=== PATIENT | male | born 1985 | race Caucasian/White ===

== ENCOUNTER 2016-09-15 00:03 | Emergency (ER) | payer MEDICAID ==
[2016-09-15 00:10] VITALS: TEMP 97.5
--- NOTE | 2016-09-15 00:49 | EDPHY ---
H & P Stated Complaint: c/o pain/lac on back of head after something fell and hit pt on back of hea Time Seen by Provider: 09/15/16 00:43 HPI/ROS: CHIEF COMPLAINT: Scalp laceration HISTORY OF PRESENT ILLNESS: Patient is a 31-year-old man who comes to the emergency department complaining of a scalp laceration. He states that he was putting together a table when a piece of the metal fell and hit him in the back of the head. He has a 1 cm laceration to his occiput. He denies loss of consciousness. He denies headache. He denies neck pain. He denies any other injuries or symptoms. REVIEW OF SYSTEMS: Constitutional: denies: chills, fever, recent illness, recent injury EENTM: denies: blurred vision, double vision, nose congestion Respiratory: denies: cough, shortness of breath Cardiac: denies: chest pain, irregular heart rate, lightheadedness, palpitations Gastrointestinal/Abdominal: denies: abdominal pain, diarrhea, nausea, vomiting, blood streaked stools Genitourinary: denies: dysuria, frequency, hematuria, pain Musculoskeletal: denies: joint pain, muscle pain Skin: See HPI Neurological: denies: headache, numbness, paresthesia, tingling, dizziness, weakness Hematologic/Lymphatic: denies: blood clots, easy bleeding, easy bruising Immunologic/allergic: denies: HIV/AIDS, transplant EXAM: GENERAL: Well-appearing, well-nourished and in no acute distress. HEAD: Small 1 cm laceration to occiput, no crepitus or deformity. , normocephalic. EYES: Pupils equal round and reactive to light, extraocular movements intact, sclera anicteric, conjunctiva are normal. ENT: TMs normal, nares patent, oropharynx clear without exudates. Moist mucous membranes. NECK: Normal range of motion, supple without lymphadenopathy or JVD. LUNGS: Breath sounds clear to auscultation bilaterally and equal. No wheezes rales or rhonchi. HEART: Regular rate and rhythm without murmurs, rubs or gallops. ABDOMEN: Soft, nontender, normoactive bowel sounds. No guarding, no rebound. No masses appreciated. BACK: No CVA tenderness, no spinal tenderness, step-offs or deformities EXTREMITIES: Normal range of motion, no pitting or edema. No clubbing or cyanosis. NEUROLOGICAL: Cranial nerves II through XII grossly intact. Normal speech, normal gait. 5/5 strength, normal movement in all extremities, normal sensation PSYCH: Normal mood, normal affect. SKIN: Warm, dry, normal turgor, no visible rashes or lesions. Source: Patient Exam Limitations: No limitations - Personal History Current Tetanus Diphtheria and Acellular Pertussis (TDAP): Yes - Medical/Surgical History Hx Asthma: No Hx Chronic Respiratory Disease: No Hx Diabetes: No Hx Cardiac Disease: No Hx Renal Disease: No Hx Cirrhosis: No Hx Alcoholism: No Hx HIV/AIDS: No Hx Splenectomy or Spleen Trauma: No Other PMH: orif L wrist - Family History Significant Family History: No pertinent family hx - Social History Smoking Status: Never smoked Alcohol Use: Sober Drug Use: None Constitutional: Initial Vital Signs Temperature (C) 36.4 C 09/15/16 00:07 Heart Rate 51 L 09/15/16 00:07 Respiratory Rate 16 09/15/16 00:07 Blood Pressure 133/90 H 09/15/16 00:07 O2 Sat (%) 99 09/15/16 00:07 O2 Delivery Mode Room Air Allergies/Adverse Reactions: No Known Allergies Allergy (Unverified 09/15/16 00:10) Home Medications: Medication Instructions Recorded NK [No Known Home Meds] 09/15/16 Medical Decision Making Procedures: Procedure: Laceration repair. Verbal consent was obtained from the patient. The 1 cm scalp laceration was not anesthetized. The wound was irrigated copiously according to protocol, draped and explored to its base. It was approximately 1/2 cm deep. There were no deep structures involved. No tendon, nerve, or vascular injury was identified when explored. No foreign body was identified. The wound was repaired with 1 single staple. The wound repair was simple without wound margin revisement or multiple flap alignment. The procedure was performed by myself. A dressing was then placed with sterile gauze and bacitracin. ED Course/Re-evaluation: Patient has a very small laceration. I will repaired with a staple. He declines anesthesia. He declines imaging. I agree that he is low risk for internal injury. We also discussed concussions. He has a very slight headache but no other symptoms. He tolerated repair well. We discussed staple care. We discussed concussions and stepwise recovery. It is unclear as to whether not he has a concussion. Differential Diagnosis: Partial list of the Differential diagnosis considered include but were not limited to; scalp laceration, concussion and although unlikely based on the history and physical exam, I also considered fracture, cervical spine injury, hemorrhage. I discussed these differential diagnoses and the plan with the patient as well as the usual and expected course. The patient understands that the diagnosis is provisional and that in medicine we are not always correct and that further workup is often warranted. Usual and customary warnings were given. All of the patient's questions were answered. The patient was instructed to return to the emergency department should the symptoms at all worsen or return, otherwise to followup with the physician as we discussed. Departure - Departure Disposition: Home, Routine, Self-Care Clinical Impression: Laceration Condition: Fair Instructions: Staple Care (ED) Additional Instructions: Return to have your loni removed in 7-10 days. Referrals: Maria Moreno NP [Primary Care Provider] - As per Instructions
[2016-09-15 01:30] VITALS: BP 115/71; PULSE 50; RESP 18; O2SAT 97
== END 2016-09-22 12:17 | disposition home or self-care (01) ==
PROC: 0HQ0XZZ Repair Scalp Skin, External Approach (ICD-10-PCS; principal; 2016-09-15)
DX: S01.01XA Laceration without foreign body of scalp, initial encounter (principal); W20.8XXA Other cause of strike by thrown, projected or falling object, initial encounter

== ENCOUNTER 2016-09-17 17:13 | Emergency (ER) | payer MEDICAID ==
--- NOTE | 2016-09-17 18:30 | EDPHY ---
H & P Stated Complaint: hit on head /lac wednesday now has baig and head feels hot Time Seen by Provider: 09/17/16 17:53 HPI/ROS: Chief Complaint: Head injury, head throbbing, felt hot HPI: 31-year-old male who sustained a head injury 3 days ago when a metal object fell and hit his head and sustained a laceration. He was seen here and had a single staple placed. He did not have a loss of consciousness. He fell completely normal unwell the following 2 days and in fact went for a run yesterday. Today he felt normal with this afternoon started developing a mild throbbing in his head and felt hit his head and shoulders were hot and flushed. No vision changes. No nausea or vomiting. Pain at worst was a 3 on 10. Since being in the waiting room and in the emergency department is down to 110. He called his primary care physician was told to come in to have a CT scan of his brain. Patient is concerned about the radiation might be associated with this. Denies any other injuries. No hearing changes. No vision changes. He has not been taking any medications. ROS: 10 point Review of Systems is negative except as noted in the HPI. PMH: None Social History: No smoking, rare alcohol, no recreational drug use Family History: non-contributory Physical Exam: Gen: Awake, Alert, No Distress HEENT: Well-healing small scalp laceration in the occiput with a single staple which is clean dry and intact Nose: no rhinorrhea Eyes: PERRLA, EOMI Mouth: Moist mucosa Neck: Supple, no JVD Chest: nontender, lungs clear to auscultation Heart: S1, S2 normal, no murmur Abd: Soft, non-tender, no guarding Back: no CVA tenderness, no midline tenderness Ext: no edema, non-tender Skin: no rash Neuro: CN II-XII intact, Sensation grossly intact, Strength 5/5 in bilateral upper and lower extremities - Personal History Current Tetanus/Diphtheria Vaccine: Yes - Medical/Surgical History Hx Asthma: No Hx Chronic Respiratory Disease: No Hx Diabetes: No Hx Cardiac Disease: No Hx Renal Disease: No Hx Cirrhosis: No Hx Alcoholism: No Hx HIV/AIDS: No Hx Splenectomy or Spleen Trauma: No Other PMH: orif L wrist - Social History Smoking Status: Never smoked Constitutional: Initial Vital Signs Temperature (C) 36.6 C 09/17/16 17:30 Heart Rate 59 L 09/17/16 17:30 Respiratory Rate 17 09/17/16 17:30 Blood Pressure 118/87 H 09/17/16 17:30 O2 Sat (%) 98 09/17/16 17:30 O2 Delivery Mode Room Air Allergies/Adverse Reactions: No Known Allergies Allergy (Verified 09/17/16 17:29) Home Medications: Medication Instructions Recorded NK [No Known Home Meds] 09/15/16 Medical Decision Making ED Course/Re-evaluation: Patient presenting with some mild head throbbing and some flushing in his head earlier today status post head injury 2 days ago. He with no symptoms the 2 days after his injury. His symptoms are much improved now without any treatment. We have had a long conversation regarding the risks and benefits associated with CT scan of his brain. He is concerned about the radiation I did inform it is about 2 years with a background radiation. We discussed that there is a possibility of not getting a CT scan of missing a small bleed but the fact that his symptoms are mild and improving without any treatment is reassuring. He understands that ruling out a small bleed without a CT scan is not possible but he does not want to have a CT scan at this time and I think that this is appropriate. He will return immediately should his symptoms worsen or for any concerns. He will otherwise follow up with primary care physician as planned. Departure - Departure Disposition: Home, Routine, Self-Care Clinical Impression: Head injury Condition: Good Instructions: Head Injury (ED) Additional Instructions: Return to the emergency department for increasing headache, nausea, vomiting, confusion, or any other concerns. Referrals: Maria Moreno COMPLEX CARE NURSE [Primary Care Provider] - As per Instructions
[2016-09-17 18:39] VITALS: BP 119/80; PULSE 58; RESP 18; TEMP 98.1; O2SAT 95
== END 2016-09-17 18:40 | disposition home or self-care (01) ==
DX: S09.90XA Unspecified injury of head, initial encounter (principal); W22.8XXA Striking against or struck by other objects, initial encounter